=== PATIENT | male | born 1975 | race Caucasian/White ===

== ENCOUNTER 2019-02-12 19:40 | Emergency (ER) | payer OTHER | END 2019-02-12 20:02 | LOC: JD.ED 19:40 | DX: Z53.21 Procedure and treatment not carried out due to patient leaving prior to being seen by health care provider (principal) ==

== ENCOUNTER 2020-10-25 13:01 | Emergency (ER) | payer OTHER ==
--- NOTE | 2020-10-25 14:37 | EDM.PDOC ---
ED HPI GENERAL MEDICAL PROBLEM - General Chief Complaint: Cardiovascular Problem Stated Complaint: IRREGULAR HEART BEAT Time Seen by Provider: 10/25/20 13:31 Source of Information: Reports: Patient, RN Notes Reviewed - History of Present Illness INITIAL COMMENTS - FREE TEXT/NARRATIVE: Has been having palpitations off and on for about the past month. Was on norvasc for Htn. He was having side effects from that so has been recently changed over to lorsartin. That is about when the palpitations started. He has been cutting those down to 1/2 and even 1/4 dose but still having sx. No cough, chest pain, fever or chills. - Related Data Allergies Allergy/AdvReac Type Severity Reaction Status Date / Time amlodipine [From Norvasc] Allergy Swelling Verified 10/25/20 13:16 celecoxib Allergy Cannot Verified 10/25/20 13:16 Remember rofecoxib Allergy Cannot Verified 10/25/20 13:16 Remember Sulfa (Sulfonamide Allergy Vomiting Verified 10/25/20 13:16 Antibiotics) Home Meds: Home Meds Acetaminophen/HYDROcodone [[place] 325-5 MG] 1 - 2 tab PO Q6H PRN 08/18/18 [History] Orphenadrine [Norflex] 1 tab PO Q12H PRN #14 tab.er 08/18/18 [Rx] Garlic 1,000 mg PO DAILY 10/25/20 [History] Losartan [Cozaar] 50 mg PO DAILY 10/25/20 [History] Past Medical History HEENT History: Reports: Impaired Vision Cardiovascular History: Reports: Hypertension Respiratory History: Reports: Bronchitis, Recurrent Genitourinary History: Reports: Other (See Below) Other Genitourinary History: states has 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 Musculoskeletal History: Reports: Fracture, Other (See Below) Other Musculoskeletal History: degenerative disc disease S1. Psychiatric History: Reports: Anxiety Other Psychiatric History: in past. Endocrine/Metabolic History: Reports: Obesity/BMI 30+ - Infectious Disease History Infectious Disease History: Reports: Chicken Pox, Mononucleosis, Novel Coronavirus, Other (See Below) Other Infectious Disease History: West Nile virus. - Past Surgical History HEENT Surgical History: Reports: Tonsillectomy Male Surgical History: Reports: Vasectomy Neurological Surgical History: Reports: C-Spine Musculoskeletal Surgical History: Reports: Carpal Tunnel Other Musculoskeletal Surgeries/Procedures:: buldging disc, neck fusion, disc implant Social & Family History - Tobacco Use Tobacco Use Status *Q: Never Tobacco User Second Hand Smoke Exposure: No - Caffeine Use Caffeine Use: Reports: Coffee Caffeine Use Comment: rarely - Alcohol Use Days Per Week of Alcohol Use: 2 Number of Drinks Per Day: 3 Total Drinks Per Week: 6 - Recreational Drug Use Recreational Drug Use: No - Living Situation & Occupation Living situation: Reports: , with Spouse, with Family (3 kids) Occupation: Employed ([employer]) ED ROS GENERAL - Review of Systems Review Of Systems: See Below Constitutional: Denies: Fever, Chills, Diaphoresis HEENT: Reports: No Symptoms Respiratory: Denies: Shortness of Breath, Pleuritic Chest Pain, Cough Cardiovascular: Reports: Palpitations. Denies: Lightheadedness GI/Abdominal: Denies: Abdominal Pain, Nausea, Vomiting Musculoskeletal: Denies: Shoulder Pain, Arm Pain, Back Pain Skin: Reports: No Symptoms Neurological: Denies: Dizziness ED EXAM, GENERAL - Physical Exam Exam: See Below General Appearance: Alert, No Apparent Distress Eye Exam: Bilateral Eye: PERRL Throat/Mouth: Normal Inspection, Normal Oropharynx Head: Atraumatic Neck: Supple Cardiovascular: Regular Rate, Rhythm GI/Abdominal: Soft, Non-Tender Extremities: Normal Inspection, Normal Range of Motion. No: Pedal Edema, Leg P ain, Increased Warmth, Redness Neurological: Alert, Oriented, No Motor/Sensory Deficits Skin Exam: Warm, Dry, Normal Color #1 Interpretation EKG Date: 10/25/20 Rhythm: NSR [place]: Normal P-Wave: Present QRS: Other (q waves lead III) Course - Vital Signs Last Recorded V/S: Last Vital Signs Temp 97.8 F 10/25/20 13:10 Pulse 72 10/25/20 13:10 Resp 12 10/25/20 13:10 BP 150/97 H 10/25/20 13:10 Pulse Ox 100 10/25/20 13:10 - Re-Assessments/Exams Free Text/Narrative Re-Assessment/Exam: 10/25/20 14:34 Sinus rythm, one PAC noted at time of exam. Will plan to send home with holter moniter. Departure - Departure Time of Disposition: 14:35 Disposition: Home, Self-Care 01 Condition: Fair Clinical Impression: Palpitations Instructions: Palpitations, [id number] Referrals: Kevin Hahn Jr, MD [Primary Care Provider] - Forms: ED Department Discharge Additional Instructions: No evidence for A fib while here in the ED. 48 hour holter moniter to further check for that or other possible heart rhythm problems. Benadry or Claritin as needed for itchiness around the pads. Lubriderm or similar lotion or ointment as needed. Follow up with Dr Hahn for results. Sepsis Event Note (ED) - Evaluation Sepsis Screening Result: No Definite Risk
== END 2020-10-25 15:05 | disposition home or self-care (01) ==
LOC: JD.ED 13:01
DX: R00.2 Palpitations (principal); I10 Essential (primary) hypertension; E66.9 Obesity, unspecified; Z68.36 Body mass index [BMI] 36.0-36.9, adult; Z79.899 Other long term (current) drug therapy; Z88.8 Allergy status to other drugs, medicaments and biological substances; Z88.2 Allergy status to sulfonamides
CPT/HCPCS: 93005; 93010; 93225; 93226; 99283; 99284-25